=== PATIENT | male | born 1985 | race Caucasian/White ===

== ENCOUNTER 2023-01-08 10:45 | Outpatient (CLI) | payer MEDICARE, SELFPAY ==
[2023-01-08 20:14] LABS: Basophils Percent Auto 0.5 % (0.2-1.2); Eosinophils Absolute Auto 0.1 K/mm3 (0-0.3); Eosinophils Percent Auto 0.9 % (0-4.4); Hematocrit 44.2 % (42.0-52.0); Immature Granulocyte Absolute 0.01 K/mm3 (0.00-0.031); Immature Granulocyte Percent A 0.2 % (0-0.5); Lymphocytes Absolute Auto 2.49 K/mm3 (0.9-3.2); Lymphocytes Percent Auto 42.6 % (18.3-44.2); Mean Corpuscular HGB Conc 33.9 g/dl (32-36); Mean Corpuscular Hemoglobin 30.9 pg (26-34); Mean Corpuscular Volume 90.9 fl (80-100); Mean Platelet Volume 11.3 fl (7.4-10.4); Monocytes Absolute Auto 0.5 K/mm3 (0.1-0.6); Neutrophils Absolute Auto 2.8 K/mm3 (1.3-6.7); Neutrophils Percent Auto 47.8 % (45.5-73.1); Platelet Count Result 116 k/mm3 (150-375); Red Blood Count 4.86 M/mm3 (4.6-6.20); Red Cell Distribution Width 12.4 % (11.5-14.5); White Blood Count 5.8 K/mm3 (4.5-10.0)
[2023-01-08 20:50] LABS: Cholesterol 252 mg/dL (0-200); HDL Direct 40 mg/dL; Triglycerides 249 mg/dL (<150)
[2023-01-08 21:06] LABS: LDL Cholesterol Direct 144 mg/dL
[2023-01-09 00:45] LABS: Alanine Aminotransferase 24 U/L (6-50); Albumin Level 4.6 g/dL (3.5-5.1); Alkaline Phosphatase 36 U/L (38-126); Anion Gap 9 mmol/L (8-16); Aspartate Amino Transferase 42 U/L (17-59); Bilirubin,Total 0.6 mg/dL (0.2-1.3); Blood Urea Nitrogen 11 mg/dL (9-20); Calcium 9.5 mg/dL (8.4-10.2); Carbon Dioxide 28 mmol/L (22-30); Chloride 102 mmol/L (98-107); Estimated Glomerular Filt Rate > 60; Glucose 98 mg/dL (65-110); Potassium 4.4 mmol/L (3.4-5.0); Sodium 139 mmol/L (137-145)
== END 2023-01-08 10:46 | disposition home or self-care (01) ==
PROVIDERS: PCP Family Medicine; Visit Provider Family Medicine
DX: E66.9 Obesity, unspecified (principal); Z00.00 Encounter for general adult medical examination without abnormal findings; Z12.5 Encounter for screening for malignant neoplasm of prostate
CPT/HCPCS: 36415; 80053; 80061; 85025

== ENCOUNTER 2024-02-24 12:52 | Outpatient (CLI) | payer MEDICARE, SELFPAY ==
[2024-02-24 13:56] LABS: Hematocrit 43.8 % (42.0-52.0); Hemoglobin 14.7 g/dL (14.0-18.0); Immature Platelet Fraction Pct 5.4 % (0.9-11.2); Mean Corpuscular HGB Conc 33.6 g/dl (32-36); Mean Corpuscular Hemoglobin 30.6 pg (26-34); Mean Corpuscular Volume 91.1 fl (80-100); Platelet Count Result 129 k/mm3 (150-375); Red Blood Count 4.81 M/mm3 (4.6-6.20); Red Cell Distribution Width 12.3 % (11.5-14.5); White Blood Count 6.2 K/mm3 (4.5-10.0)
[2024-02-24 13:59] LABS: Alanine Aminotransferase 25 U/L (6-50); Albumin Level 4.3 g/dL (3.5-5.1); Alkaline Phosphatase 33 U/L (38-126); Anion Gap 6 mmol/L (4-12); Aspartate Amino Transferase 26 U/L (17-59); Bilirubin,Total 0.7 mg/dL (0.2-1.3); Blood Urea Nitrogen 17 mg/dL (9-20); Calcium 9.8 mg/dL (8.4-10.2); Carbon Dioxide 29 mmol/L (22-30); Chloride 102 mmol/L (98-107); Cholesterol 232 mg/dL (0-200); Estimated Glomerular Filt Rate > 60; Glucose 90 mg/dL (65-110); HDL Direct 44 mg/dL; Potassium 3.7 mmol/L (3.4-5.0); Sodium 137 mmol/L (137-145); Triglycerides 185 mg/dL (<150)
[2024-02-24 14:10] LABS: LDL Cholesterol Direct 146 mg/dL
== END 2024-02-24 12:53 | disposition home or self-care (01) ==
PROVIDERS: PCP Family Medicine; Visit Provider Family Medicine
DX: E66.9 Obesity, unspecified (principal); H60.90 Unspecified otitis externa, unspecified ear
CPT/HCPCS: 36415; 80053; 80061; 85027; 85055

== ENCOUNTER 2024-08-06 13:59 | Outpatient (CLI) | payer MEDICARE, SELFPAY ==
--- NOTE | ~2024-08-06 | XR_ITS ---
EXAMINATION: XR chest 2V 08/06/2024 14:16 INDICATION: Cough PROCEDURE: 2 view chest COMPARISON: No prior studies for comparison. FINDINGS: The lungs are clear. The cardiomediastinal silhouette is within normal limits. There are no pleural effusions. There is no pneumothorax suspected. IMPRESSION: 1: NO ACUTE CARDIOPULMONARY DISEASE. Reviewed, dictated and finalized at location B.
== END 2024-08-06 14:00 | disposition home or self-care (01) ==
LOC: ANHIMG 14:05
PROVIDERS: PCP Family Medicine; Visit Provider Nurse Practitioner Family
DX: R05.9 Cough, unspecified (principal)
CPT/HCPCS: 71046

== ENCOUNTER 2025-04-12 09:47 | Outpatient (CLI) | payer MEDICARE, SELFPAY ==
--- OUTSIDE RECORDS SUMMARY | 2025-04-12 09:56 | XMS_ITS | Clinical Summary ---
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) Immunizations Immunization Administration Dates Next Due Influenza Adult (Generic) 03/20/2022(Deferred: P atient/family declined) Td (TDVAX) 10/25/2019 Family History Medical History Relation Comments CAD Father Hypertension Father Relation Status Comments Father Alive Mother Alive Social History Tobacco Use Types Packs/Day Years Used Date Smoking Tobacco: Never Smokeless Tobacco: Never Tobacco Cessation:Counseling Given: No Alcohol Use Standard Drinks/Week Comments Yes 0 (1 standard drink = 0.6 oz pur e alcohol) ONE TIME A YEAR AUDIT-C Answer Date Recorded Q1: How often do you have a drink containing alc ohol? Monthly or less 11/14/2020 Average Number of Drinks Not on file 020 Frequency of Binge Drinking Not on file 10/31 PHQ-2 Answer Date Recorded PHQ-2 Score - If the patient scores above 3, please move on to questions 3-9 0 03/28/2022 Sex and Gender Information Value Date Recorded Sex Assigned at Not on file Legal Sex Male 6:49 PM CDT Gender Identity Not on file Sexual Orientation Not on file Occupation Industry Job Start Date Job End Date unemployed Not on file Not on file Not on file Last Filed Vital Signs Vital Sign Reading Time Taken Comments Blood Pressure 140/90 03/28/2022 10:20 AM CDT Pulse 90 03/28/2022 9:51 AM CDT Temperature 36.8 C (98.2 F) 03/28/2022 9:51 AM CDT Respiratory Rate 16 03/28/2022 9:51 AM CDT Oxygen Saturation 99% 03/28/2022 9:51 AM CDT Inhaled Oxygen Concentration - - Weight 83 kg (183 lb) 03/28/2022 9:51 AM CDT Height 165.1 cm (5' 5 ) 03/28/2022 9:51 AM CDT Body Mass Index 30.45 03/28/2022 9:51 AM CDT Plan of Treatment Health Maintenance Due Date Last Done Comments Hepatitis C 2005 Hepatitis B Vaccines (1 of 3 - 19+ 3-dose series) 2006 DTaP, Tdap and Td Vaccines ( 1 - Tdap) 10/26/2019 10/25/2019 Annual Physical 10/25/2020 10/25/2019 COVID-19 Vaccine (1 - 2023-2 5 season) 2024 HPV Vaccines Aged Out No longer eligi ble based on patient's age to complete this topic Meningococcal B Vaccine Aged Out No l onger eligible based on patient's age to complete this topic Meningococcal Vaccine Aged Out No ruby krystal eligible based on patient's age to complete this topic Pneumococcal Vaccine: Pediat rics (0 to 5 Years) and At-Risk Patients (6 to 49 Years) Aged Out No longer eligi ble based on patient's age to complete this topic RSV Immunizations Under 20 Months Aged Out No longer eligible based on patient's age to complete this topic Insurance MEDICAID [facility] Care Teams Corporate Executive Relationship Specialty Start Date End Date Manda Darling DO [address] [place] [id number] PCP - General FAMILY PRACTICE 12/26/22
--- OUTSIDE RECORDS SUMMARY | 2025-04-12 09:56 | XMS_ITS | Clinical Summary ---
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 Immunizations Immunization Administration Dates Next Due Td, adsorbed 10/25/2019 Social History Tobacco Use Types Packs/Day Years Used Date Smoking Tobacco: Never Smokeless Tobacco: Never Alcohol Use Standard Drinks/Week Comments No 0 (1 standard drink = 0.6 oz pur e alcohol) Personal Safety Answer Date Recorded Getting School Help Needed Not on file 01/25 Sex and Gender Information Value Date Recorded Sex Assigned at Not on file Legal Sex Male 7:49 PM GEOGRAPHIC ANALYST Gender Identity Not on file Sexual Orientation Not on file Obstetrics History Last Filed Vital Signs Vital Sign Reading Time Taken Comments Blood Pressure 116/78 11/05/2023 9:19 AM GEOGRAPHIC ANALYST Pulse 65 11/05/2023 9:19 AM GEOGRAPHIC ANALYST Temperature 36.6 C (97.8 F) 11/05/2023 9:19 AM GEOGRAPHIC ANALYST Respiratory Rate 18 11/05/2023 9:19 AM GEOGRAPHIC ANALYST Oxygen Saturation 97% 11/05/2023 9:19 AM GEOGRAPHIC ANALYST Inhaled Oxygen Concentration - - Weight 84.6 kg (186 lb 9.6 oz) 11/05/2023 9:19 A M GEOGRAPHIC ANALYST Height 168.9 cm (5' 6.5 ) 11/05/2023 9:19 AM GEOGRAPHIC ANALYST Body Mass Index 29.67 11/05/2023 9:19 AM GEOGRAPHIC ANALYST Plan of Treatment Health Maintenance Due Date Last Done Comments Depression Screening 1987 Hepatitis C Screening 1987 Varicella Vaccines (1 of 2 - 13+ 2-dose series) 2000 Hepatitis B Screening 2005 Regular Well Visit/Exam 18-64 2005 DTaP/Tdap/Td Vaccine (1 - Tdap) 10/26/2019 9 Influenza Vaccine (#1) 2024 HPV Vaccines Aged Out No longer eligi ble based on patient's age to complete this topic Pneumococcal vaccine <65 Aged Out No longer eligible based on patient's age to complete this topic Insurance [facility] MEDICARE ADVANTAGE [employer] [facility] MEDICARE ADVANTAGE Care Teams Sail Repairer Relationship Specialty Start Date End Date Farhat Broussard MD [address] [place] [id number] PCP - General Family Practice 11/05/23 Unknown, Notinfile 08/25/18 [place] [address] [place] [id number] Medical Oncologist/Sales Program Manager Hematology and Oncology 08/18/18
--- OUTSIDE RECORDS SUMMARY | 2025-04-12 09:56 | XMS_ITS | Referral Summary ---
Author Organization [facility] Address [address] [place] [address] Phone Care Team Providers Care Fountain Brush Assembler Name Role Phone Unknown, Notinfile Unavailable Unavailable Rey Peck DO Unavailable [phone] Farhat Broussard MD Primary Care Provider [phone] Allergies Active Allergy Reactions Criticality Noted Date [...] on file Legal Sex Male 7:49 PM DUE DILIGENCE COORDINATOR Gender Identity Not on file Sexual Orientation Not on file Last Filed Vital Signs Vital Sign Reading Time Taken Comments Blood Pressure 116/78 11/05/2023 9:19 AM DUE DILIGENCE COORDINATOR Pulse 65 11/05/2023 9:19 AM DUE DILIGENCE COORDINATOR Temperature 36.6 C (97.8 F) 11/05/2023 9:19 AM DUE DILIGENCE COORDINATOR Respiratory Rate 18 11/05/2023 9:19 AM DUE DILIGENCE COORDINATOR Oxygen Saturation 97% 11/05/2023 9:19 AM DUE DILIGENCE COORDINATOR Inhaled Oxygen Concentration - - Weight 84.6 kg (186 lb 9.6 oz) 11/05/2023 9:19 A M DUE DILIGENCE COORDINATOR Height 168.9 cm (5' 6.5 ) 11/05/2023 9:19 AM DUE DILIGENCE COORDINATOR Body Mass Index 29.67 11/05/2023 9:19 AM DUE DILIGENCE COORDINATOR Plan of Treatment Not on file Insurance [facility] MEDICARE ADVANTAGE [employer] [facility] MEDICARE ADVANTAGE Care Teams Fountain Brush Assembler Relationship Specialty Start Date End Date Farhat Broussard MD [address] [place] [phone] PCP - General Family Practice 11/05/23 Unknown, Notinfile 08/25/18 Rey Peck DO [address] [id number] Medical Oncologist/Developmental Education Instructor Hematology and Oncology 08/18/18
[2025-04-12 10:18] LABS: Hematocrit 43.1 % (42.0-52.0); Hemoglobin 14.4 g/dL (14.0-18.0); Mean Corpuscular HGB Conc 33.4 g/dl (32-36); Mean Corpuscular Hemoglobin 30.6 pg (26-34); Mean Corpuscular Volume 91.7 fl (80-100); Mean Platelet Volume 10.2 fl (7.4-10.4); Platelet Count Result 131 k/mm3 (150-375); Red Cell Distribution Width 12.4 % (11.5-14.5); White Blood Count 4.3 K/mm3 (4.5-10.0)
[2025-04-12 10:29] LABS: Alanine Aminotransferase 32 U/L (6-50); Albumin Level 4.4 g/dL (3.5-5.1); Alkaline Phosphatase 38 U/L (38-126); Anion Gap 4 mmol/L (4-12); Aspartate Amino Transferase 36 U/L (17-59); Bilirubin,Total 0.9 mg/dL (0.2-1.3); Blood Urea Nitrogen 12 mg/dL (9-20); Calcium 9.2 mg/dL (8.4-10.2); Carbon Dioxide 31 mmol/L (22-30); Chloride 103 mmol/L (98-107); Cholesterol 249 mg/dL (0-200); Estimated Glomerular Filt Rate > 60; Glucose 103 mg/dL (65-110); HDL Direct 49 mg/dL; Potassium 4.4 mmol/L (3.4-5.0); Sodium 138 mmol/L (137-145); Triglycerides 131 mg/dL (<150)
[2025-04-12 10:42] LABS: LDL Cholesterol Direct 144 mg/dL
== END 2025-04-12 09:48 | disposition home or self-care (01) ==
LOC: ANHLAB 09:48
PROVIDERS: PCP Family Medicine; Visit Provider Family Medicine
DX: D69.6 Thrombocytopenia, unspecified (principal); E66.9 Obesity, unspecified
CPT/HCPCS: 36415; 80053; 80061; 85027; 85055